=== PATIENT | female | born 1955 | race Caucasian/White ===

== ENCOUNTER 2016-11-15 17:51 | Emergency (ER) | payer BC ==
[~2016-11-15 17:51] MED LIST: CREO6000 OR; HYDR-3580 PO; LEVO75TA42 PO; OMEP40CA2 PO; ZOFR4TAB3 SL
[2016-11-15 17:55] VITALS: BP 141/105; PULSE 95; RESP 22; TEMP 98.3; O2SAT 100
[2016-11-15] MEDS ORDERED: SODIUM CHLOR 0.9% 1000 ML INJ 1,000 ML IV SCH ×2 (18:41→19:45)
[2016-11-15] MEDS ORDERED: METOCLOPRAMIDE HCL 10 MG/2 ML VIAL IV PUSH ONE (18:45)
[2016-11-15] MEDS ORDERED: diphenhydrAMINE HCL 50 MG/ML VIAL IV PUSH ONE (18:45)
[2016-11-15] MEDS ORDERED: SODIUM CHLORIDE 0.9% FLUSH 10 ML FLUSH IV FLUSH PRN (18:45)
[2016-11-15] MEDS ORDERED: MORPHINE SULFATE 8 MG/ML INJ IV PUSH ONE (18:45)
[2016-11-15] MEDS ORDERED: CREON6 PO (18:48)
[2016-11-15] MEDS ORDERED: LEVO100T5 PO (18:48)
[2016-11-15] MEDS ORDERED: PANT40TA3 PO ×2 (18:48→20:52)
--- NOTE | 2016-11-15 18:56 | PD ---
HPI . Nausea and vomiting Chief Complaint: Abdominal Pain Time Seen by Provider: 18:48 Travel History International Travel<30 days: No Contact w/Intl Traveler<30days: No Traveled to known affect area: No History of Present Illness HPI Patient presents with the acute onset of nausea and vomiting. It started somewhere around 10:00 this morning. She describes many episodes of emesis. She denies diarrhea. She denies fever. She complains of some upper abdominal pain. Pain is rated 9/10. Patient believes that her was triggered by a glazed doughnuts. Pain and vomiting have been unrelieved by Zofran. Patient reports a history of pancreatitis which she states is due to high fats. PFSH Past Medical History Blood Disorders: No Cancer: No Cardiovascular Problems: No Diminished Hearing: No Endocrine: No Gastrointestinal Disorders: Yes (GASTRITIS, INFLAMED ESOPHAGUS, GERD-LIKE S/S. pancreas problems) GERD: Yes Glaucoma: No Genitourinary: No Immune Disorder: No Musculoskeletal: No Neurologic: No Psychiatric: No Reproductive: No Respiratory: No Immunizations Current: Yes Thyroid Disease: Yes Tetanus Vaccination: < 5 Years Influenza Vaccination: Yes ?: Not Tubal Ligation: Yes Past Surgical History Abdominal Surgery: No Cardiac Surgery: No Cholecystectomy: Yes Ear Surgery: No Endocrine Surgery: No Eye Surgery: No Genitourinary Surgery: No Gynecologic Surgery: Yes (TUBAL) Oral Surgery: No Pacemaker: No Thoracic Surgery: No Other Surgery: Yes Social History Alcohol Use: No Tobacco Use: No Substance Use: No Allergies-Medications (Allergen,Severity, Reaction): Coded Allergies: Compazine (Verified Allergy, Severe, RASH/FLUSH SKIN, 11/15/16) Keflex (Verified Allergy, Severe, 11/15/16) Reported Meds & Prescriptions Reported Meds & Active Scripts Active Reported Creon (Amylase/Lipase/Protease) 6,000-19,000-30,000 Units Cap 1 Cap PO TIDPC Pantoprazole (Pantoprazole Sodium) 40 Mg Tab 40 Mg PO DAILY Levothyroxine (Levothyroxine Sodium) 100 Mcg Tab 100 Mcg PO DAILY Review of Systems Except as stated in HPI: all other systems reviewed are Neg General / Constitutional: No: Fever, Chills Gastrointestinal: Positive: Nausea, Vomiting, Abdominal Pain, No: Diarrhea Physical Exam Narrative GENERAL: Patient is lying on her left side with an emesis bag. SKIN: Warm and dry. HEAD: Atraumatic. Normocephalic. EYES: Pupils equal and round. Sclera are anicteric. ENT: No nasal bleeding or discharge. Mucous membranes pink and moist. NECK: Trachea midline. Neck is supple. CARDIOVASCULAR: Regular rate and rhythm. Heart sounds are normal. RESPIRATORY: No accessory muscle use. Lungs are clear with full air movement throughout. GASTROINTESTINAL: Abdomen soft. Nondistended. Bowel sounds positive. Epigastric tenderness with no guarding or rebound. MUSCULOSKELETAL: No obvious deformities. No edema. NEUROLOGICAL: Awake and alert. No obvious cranial nerve deficits. Motor grossly within normal limits. Normal speech. PSYCHIATRIC: Appropriate mood and affect; insight and judgment normal. Data Data Last Documented VS Vital Signs Date Time Temp Pulse Resp B/P Pulse Ox O2 Delivery O2 Flow Rate FiO2 11/15/16 17:55 98.3 95 22 141/105 100 Orders Complete Blood Count With Diff (11/15/16 18:41) Comprehensive Metabolic Panel (11/15/16 18:41) Lipase (11/15/16 18:41) Ct Abd/Pel W Iv Contrast(Rout) (11/15/16 18:41) Iv Access Insert/Monitor (11/15/16 18:41) Sodium Chlor 0.9% 1000 Ml Inj (Ns 1000 M (11/15/16 18:41) Sodium Chloride 0.9% Flush (Ns Flush) (11/15/16 18:45) Morphine Inj (Morphine Inj) (11/15/16 18:45) Diphenhydramine Inj (Benadryl Inj) (11/15/16 18:45) Metoclopramide Inj (Reglan Inj) (11/15/16 18:45) MDM Medical Decision Making Medical Screen Exam Complete: Yes Emergency Medical Condition: Yes Medical Record Reviewed: Yes (the patient has been seen here several times in the past and diagnosed with gastritis. I do not see any previous diagnoses of pancreatitis nor do I see any previous elevated lipase or amylase.) Differential Diagnosis Differential diagnosis includes but is not limited to viral gastritis, food poisoning, pancreatitis, pneumonia, hepatitis, acute coronary syndrome, Narrative Course Patient presents complaining with nausea, vomiting and upper abdominal pain. The patient reports previous history of pancreatitis and states that his symptoms are similar. Her care is being turned over to Dr. Maki at 7 PM. Diagnosis Primary Impression: Epigastric pain Additional Impression: Vomiting Qualified Code: R11.2 - Nausea and vomiting, intractability of vomiting not specified, unspecified vomiting type Condition: Stable Beatrice Pino MD Nov 15, 2016 18:56
[2016-11-15 19:10] VITALS: BP_SYST 155; BP_SYST 157; BP_DIAS 81; BP_DIAS 88; PULSE 82; PULSE 83; RESP 17; RESP 18; TEMP 98.9; O2SAT 93; O2SAT 96
[2016-11-15 19:12] LABS: AUTOMATED NEUTROPHIL # 12.5 TH/MM3 (1.8-7.7); BASOPHIL # 0.1 TH/MM3 (0-0.2); BASOPHIL % 0.8 % (0.0-2.0); EOSINOPHIL # 0.1 TH/MM3 (0-0.4); EOSINOPHIL % 0.5 % (0.0-4.0); HEMATOCRIT 41.7 % (35.0-46.0); HEMO FLAGS DIFF FINAL; LYMPH % 7.5 % (9.0-44.0); LYMPHOCYTE # 1.1 TH/MM3 (1.0-4.8); MEAN CELL VOLUME 84.9 FL (80.0-100.0); MEAN CORPUSCULAR HEMOGLOBIN 28.2 PG (27.0-34.0); MEAN CORPUSCULAR HGB CONC 33.2 % (32.0-36.0); MONO % 2.4 % (0.0-8.0); NEUT % 88.8 % (16.0-70.0); PLATELET COUNT 407 TH/MM3 (150-450); RED BLOOD COUNT 4.92 MIL/MM3 (4.00-5.30); RED CELL DISTRIBUTION WIDTH 12.9 % (11.6-17.2); WHITE BLOOD COUNT 14.1 TH/MM3 (4.0-11.0)
[2016-11-15 19:19] LABS: CHLORIDE 103 MEQ/L (98-107); POTASSIUM 3.5 MEQ/L (3.5-5.1); SODIUM (NA) 139 MEQ/L (136-145)
[2016-11-15 19:21] VITALS: RESP 17
[2016-11-15 19:23] LABS: ANION GAP 11 MEQ/L (5-15); BICARBONATE 25.2 MEQ/L (21.0-32.0); BLOOD UREA NITROGEN 13 MG/DL (7-18)
[2016-11-15 19:26] LABS: ALT (GPT) 23 U/L (10-53); AST (GOT) 17 U/L (15-37); GLOMERULAR FILTRATION RATE 63 ML/MIN (>89)
[2016-11-15 19:28] LABS: TOTAL BILIRUBIN ADULT 0.6 MG/DL (0.2-1.0)
[2016-11-15 19:29] LABS: ALKALINE PHOSPHATASE 106 U/L (45-117)
[2016-11-15] MEDS ORDERED: ONDANSETRON HCL 4 MG/2 ML VIAL IV ONE (19:45)
[2016-11-15] MEDS ORDERED: OMEP20TA PO (20:47)
[2016-11-15] MEDS ORDERED: ZOFR8TAB4 SL (20:47)
--- NOTE | 2016-11-15 20:48 | PD ---
Physical Exam Time Seen by Provider: 20:[address] gupta left this patient with me to check the results of the laboratory and CT and make a disposition. Data Data Last Documented VS Vital Signs Date Time Temp Pulse Resp B/P Pulse Ox O2 Delivery O2 Flow Rate FiO2 11/15/16 19:21 17 11/15/16 19:10 83 155/88 93 Room Air 11/15/16 19:10 98.9 Orders Complete Blood Count With Diff (11/15/16 18:41) Comprehensive Metabolic Panel (11/15/16 18:41) Lipase (11/15/16 18:41) Ct Abd/Pel W Iv Contrast(Rout) (11/15/16 18:41) Iv Access Insert/Monitor (11/15/16 18:41) Sodium Chlor 0.9% 1000 Ml Inj (Ns 1000 M (11/15/16 18:41) Sodium Chloride 0.9% Flush (Ns Flush) (11/15/16 18:45) Morphine Inj (Morphine Inj) (11/15/16 18:45) Diphenhydramine Inj (Benadryl Inj) (11/15/16 18:45) Metoclopramide Inj (Reglan Inj) (11/15/16 18:45) Ondansetron Inj (Zofran Inj) (11/15/16 19:45) Sodium Chlor 0.9% 1000 Ml Inj (Ns 1000 M (11/15/16 19:45) Labs Laboratory Tests Test 11/15/16 19:05 White Blood Count 14.1 TH/MM3 Red Blood Count 4.92 MIL/MM3 Hemoglobin 13.9 GM/DL Hematocrit 41.7 % Mean Corpuscular Volume 84.9 FL Mean Corpuscular Hemoglobin 28.2 PG Mean Corpuscular Hemoglobin 33.2 % Concent Red Cell Distribution Width 12.9 % Platelet Count 407 TH/MM3 Mean Platelet Volume 7.7 FL Neutrophils (%) (Auto) 88.8 % Lymphocytes (%) (Auto) 7.5 % Monocytes (%) (Auto) 2.4 % Eosinophils (%) (Auto) 0.5 % Basophils (%) (Auto) 0.8 % Neutrophils # (Auto) 12.5 TH/MM3 Lymphocytes # (Auto) 1.1 TH/MM3 Monocytes # (Auto) 0.3 TH/MM3 Eosinophils # (Auto) 0.1 TH/MM3 Basophils # (Auto) 0.1 TH/MM3 CBC Comment DIFF FINAL Differential Comment Sodium Level 139 MEQ/L Potassium Level 3.5 MEQ/L Chloride Level 103 MEQ/L Carbon Dioxide Level 25.2 MEQ/L Anion Gap 11 MEQ/L Blood Urea Nitrogen 13 MG/DL Creatinine 0.91 MG/DL Estimat Glomerular Filtration 63 ML/MIN Rate Random Glucose 136 MG/DL Calcium Level 9.9 MG/DL Total Bilirubin 0.6 MG/DL Aspartate Amino Transf 17 U/L (AST/SGOT) Alanine Aminotransferase 23 U/L (ALT/SGPT) Alkaline Phosphatase 106 U/L Total Protein 8.6 GM/DL Albumin 4.0 GM/DL Lipase 73 U/L MDM Medical Record Reviewed: Yes Supervised Visit with FIFI: Yes Interpretation(s) The CBC shows white count of 14,100 with 89% neutrophils. The complete metabolic profile shows a GFR of 63 but is otherwise normal. The lipase is normal. The patient refused a CT scan, she states her son is a radiologist and she does not want the radiation. Differential Diagnosis Gastritis, pancreatitis, gastroenteritis, dehydration, electrolyte disorder, ulcer pain Narrative Course The patient refused the CT, she states she has a son who is a radiologist and does not want the radiation. The patient likely has a gastritis. Plan: The patient will be given Zofran and Prilosec and follow-up with her primary care physician in [place]. Diagnosis Primary Impression: Gastritis Additional Impression: Epigastric pain Additional Instruction: As we discussed, take the Zofran regularly, 8 mg 3 times daily For the first few days. Hopefully, this will avoid the nausea and vomiting episodes. Follow- up with your primary care physician in [place]. Med/Other Pt SpecificInfo: Prescription(s) given Scripts Ondansetron Odt (Zofran Odt)8 Mg Tab8 Mg SL Q8H PRN (NAUSEA OR VOMITING) #30 TAB Ref 0 Prov:Dallas Maki MD 11/15/16 Omeprazole 20 Mg Tab20 Mg PO DAILY #30 TAB Ref 0 Prov:Dallas Maki MD 11/15/16 Disposition: 01 DISCHARGE HOME Condition: Stable Dallas Maki MD Nov 15, 2016 20:48
[2016-11-15 21:02] VITALS: BP 138/78
[2016-11-16] MEDS ORDERED: REGL5TAB PO (13:25)
== END 2016-11-15 21:34 | disposition home or self-care (01) ==
LOC: PHED 17:51
DX: K29.70 Gastritis, unspecified, without bleeding (principal); E07.9 Disorder of thyroid, unspecified
CPT/HCPCS: 80053; 83690; 85025; 96361; 96374; 96375; 99284; J1200; J2270; J2765; J7030

== ENCOUNTER 2016-11-16 09:33 | Emergency (ER) | payer BC ==
[~2016-11-16] VITALS: Ht 162.6 cm; Wt 85.0 kg
[~2016-11-16 09:33] MED LIST changes: -CREO6000 OR; +CREON6 PO; -HYDR-3580 PO; +LEVO100T5 PO; -LEVO75TA42 PO; -OMEP40CA2 PO; +PANT40TA3 PO; -ZOFR4TAB3 SL; +ZOFR8TAB4 SL
[2016-11-16 09:38] VITALS: BP 154/101; PULSE 83; RESP 16; TEMP 98.2; O2SAT 100
--- NOTE | 2016-11-16 10:08 | PD ---
HPI Chief Complaint: GI Complaint Time Seen by Provider: 10:08 Travel History International Travel<30 days: No Contact w/Intl Traveler<30days: No Traveled to known affect area: No History of Present Illness HPI 61-year-old female came to the emergency room with history of epigastric pain, nausea and vomiting which is intractable. Patient says she was here at 7 PM last night for the exact same thing. This started yesterday. She has history of pancreatitis and she thinks this is what it is. She was seen in the emergency room and was given IV pain medication and IV fluid. However her symptoms after she went home started again. She says she's been vomiting every hour since she went home. She seemed uncomfortable here. I looked at her record from last night and she had some leukocytosis but lipase was within normal limits. PFSH Past Medical History Narrative Medical List of her past medical, surgical, social and family history was reviewed from the nursing note. Blood Disorders: No Cancer: No Cardiovascular Problems: No Diminished Hearing: No Endocrine: No Gastrointestinal Disorders: Yes (GASTRITIS, INFLAMED ESOPHAGUS, GERD-LIKE S/S. pancreas problems) GERD: Yes Glaucoma: No Genitourinary: No Immune Disorder: No Musculoskeletal: No Neurologic: No Psychiatric: No Reproductive: No Respiratory: No Immunizations Current: Yes Thyroid Disease: Yes ?: Not LMP: MENOPAUSAL Tubal Ligation: Yes Past Surgical History Abdominal Surgery: No Cardiac Surgery: No Cholecystectomy: Yes Ear Surgery: No Endocrine Surgery: No Eye Surgery: No Genitourinary Surgery: No Gynecologic Surgery: Yes (TUBAL) Oral Surgery: No Pacemaker: No Thoracic Surgery: No Other Surgery: Yes Social History Alcohol Use: No Tobacco Use: No Substance Use: No Allergies-Medications (Allergen,Severity, Reaction): Coded Allergies: Compazine (Verified Allergy, Severe, RASH/FLUSH SKIN, 11/16/16) Keflex (Verified Allergy, Severe, 11/16/16) Comments List of her allergies reviewed from the nursing note. Reported Meds & Prescriptions Reported Meds & Active Scripts Active Reglan (Metoclopramide HCl) 5 Mg Tab 5 Mg PO QID PRN Zofran Odt (Ondansetron Odt) 8 Mg Tab 8 Mg SL Q8H PRN Reported Creon (Amylase/Lipase/Protease) 6,000-19,000-30,000 Units Cap 1 Cap PO TIDPC Pantoprazole (Pantoprazole Sodium) 40 Mg Tab 40 Mg PO DAILY Levothyroxine (Levothyroxine Sodium) 100 Mcg Tab 100 Mcg PO DAILY Narrative Medication List of her home medications reviewed from the nursing note. Review of Systems Except as stated in HPI: all other systems reviewed are Neg Physical Exam Narrative GENERAL: Awake, alert, moderate distress SKIN: Focused skin assessment warm/dry. HEAD: Atraumatic. Normocephalic. EYES: Pupils equal and round. No scleral icterus. No injection or drainage. ENT: No nasal bleeding or discharge. Mucous membranes pink and moist. NECK: Trachea midline. No JVD. CARDIOVASCULAR: Regular rate and rhythm. No murmur appreciated. RESPIRATORY: No accessory muscle use. Clear to auscultation. Breath sounds equal bilaterally. GASTROINTESTINAL: Abdomen soft, non-tender, nondistended. Hepatic and splenic margins not palpable. MUSCULOSKELETAL: No obvious deformities. No clubbing. No cyanosis. No edema. NEUROLOGICAL: Awake and alert. No obvious cranial nerve deficits. Motor grossly within normal limits. Normal speech. PSYCHIATRIC: Appropriate mood and affect; insight and judgment normal. Data Data Last Documented VS Vital Signs Date Time Temp Pulse Resp B/P Pulse Ox O2 Delivery O2 Flow Rate FiO2 11/16/16 13:25 78 145/62 95 11/16/16 10:02 16 11/16/16 09:38 98.2 Orders Complete Blood Count With Diff (11/16/16 10:41) Comprehensive Metabolic Panel (11/16/16 10:41) Lipase (11/16/16 10:41) Iv Access Insert/Monitor (11/16/16 10:41) Ecg Monitoring (11/16/16 10:41) Oximetry (11/16/16 10:41) Pantoprazole Inj (Protonix Inj) (11/16/16 10:45) Sodium Chlor 0.9% 1000 Ml Inj (Ns 1000 M (11/16/16 10:41) Sodium Chloride 0.9% Flush (Ns Flush) (11/16/16 10:45) Morphine Inj (Morphine Inj) (11/16/16 10:45) Metoclopramide Inj (Reglan Inj) (11/16/16 10:45) Ct Abd/Pel W/O Iv Contrast (6/29/17 ) Potassium Chlor 10 Meq Premix (Kcl 10 Me (11/16/16 12:15) Labs Laboratory Tests Test 11/16/16 11:09 White Blood Count 14.7 TH/MM3 Red Blood Count 4.79 MIL/MM3 Hemoglobin 13.8 GM/DL Hematocrit 41.0 % Mean Corpuscular Volume 85.7 FL Mean Corpuscular Hemoglobin 28.7 PG Mean Corpuscular Hemoglobin 33.5 % Concent Red Cell Distribution Width 13.4 % Platelet Count 402 TH/MM3 Mean Platelet Volume 8.3 FL Neutrophils (%) (Auto) 84.5 % Lymphocytes (%) (Auto) 8.7 % Monocytes (%) (Auto) 5.5 % Eosinophils (%) (Auto) 0.1 % Basophils (%) (Auto) 1.2 % Neutrophils # (Auto) 12.4 TH/MM3 Lymphocytes # (Auto) 1.3 TH/MM3 Monocytes # (Auto) 0.8 TH/MM3 Eosinophils # (Auto) 0.0 TH/MM3 Basophils # (Auto) 0.2 TH/MM3 CBC Comment DIFF FINAL Differential Comment Sodium Level 140 MEQ/L Potassium Level 3.4 MEQ/L Chloride Level 103 MEQ/L Carbon Dioxide Level 25.6 MEQ/L Anion Gap 11 MEQ/L Blood Urea Nitrogen 12 MG/DL Creatinine 0.75 MG/DL Estimat Glomerular Filtration 79 ML/MIN Rate Random Glucose 117 MG/DL Calcium Level 9.7 MG/DL Total Bilirubin 0.7 MG/DL Aspartate Amino Transf 15 U/L (AST/SGOT) Alanine Aminotransferase 21 U/L (ALT/SGPT) Alkaline Phosphatase 99 U/L Total Protein 8.0 GM/DL Albumin 3.8 GM/DL Lipase 63 U/L [facility] Medical Decision Making Medical Screen Exam Complete: Yes Emergency Medical Condition: Yes Medical Record Reviewed: Yes Differential Diagnosis Acute gastroenteritis, acute pancreatitis, acute gastritis, gastroparesis Narrative Course 11:33 AM patient was medicated with pain meds, IV Protonix and IV fluid bolus. I gave her IV Reglan as well. Awaiting for the blood work to return. Patient never had a CT scan of her abdomen and pelvis have given her leukocytosis last night have ordered a CT scan as well. 12:02 PM blood test results are back. Patient continues to have some leukocytosis with left shift. Lipase once again is within normal range. Her potassium is slightly low and I'm giving her IV potassium. Her retching and vomiting seems to have stopped for now. Awaiting for the CAT scan to be done and resulted. 1:[address] scan does not show any acute issues. I will discharge her home. Procedures EKG Prior to Arrival: No Diagnosis Primary Impression: Acute gastritis Qualified Code: K29.00 - Acute gastritis without hemorrhage, unspecified gastritis type Referrals: Primary Care Physician 3 days Additional Instructions: Please return to the ER if the condition worsens or any other new concerns. Otherwise follow-up with your primary care in couple days. Take the medication as per the prescription direction. Avoid acidic fluid like lemon, lying, strawberries, tomatoes etc. Med/Other Pt SpecificInfo: Prescription(s) given Scripts Metoclopramide (Reglan)5 Mg Tab5 Mg PO QID PRN (vomiting) #20 TAB Ref 0 Prov:Lucho Coffey MD 11/16/16 Disposition: 01 DISCHARGE HOME Condition: Stable Lucho Coffey MD Nov 16, 2016 10:08
[2016-11-16] MEDS ORDERED: SODIUM CHLOR 0.9% 1000 ML INJ 1,000 ML IV SCH (10:41)
[2016-11-16] MEDS ORDERED: SODIUM CHLORIDE 0.9% FLUSH 10 ML FLUSH IV FLUSH PRN (10:45)
[2016-11-16] MEDS ORDERED: METOCLOPRAMIDE HCL 10 MG/2 ML VIAL IV PUSH ONE (10:45)
[2016-11-16] MEDS ORDERED: PANTOPRAZOLE SODIUM 40 MG VIAL IVP ONE (10:45)
[2016-11-16] MEDS ORDERED: MORPHINE SULFATE 8 MG/ML INJ IV PUSH ONE (10:45)
[2016-11-16 11:23] VITALS: O2SAT 96
[2016-11-16 11:32] LABS: AUTOMATED NEUTROPHIL # 12.4 TH/MM3 (1.8-7.7); BASOPHIL # 0.2 TH/MM3 (0-0.2); BASOPHIL % 1.2 % (0.0-2.0); EOSINOPHIL % 0.1 % (0.0-4.0); LYMPH % 8.7 % (9.0-44.0); LYMPHOCYTE # 1.3 TH/MM3 (1.0-4.8); MEAN CELL VOLUME 85.7 FL (80.0-100.0); MEAN CORPUSCULAR HEMOGLOBIN 28.7 PG (27.0-34.0); MEAN CORPUSCULAR HGB CONC 33.5 % (32.0-36.0); MONO % 5.5 % (0.0-8.0); NEUT % 84.5 % (16.0-70.0); PLATELET COUNT 402 TH/MM3 (150-450); RED BLOOD COUNT 4.79 MIL/MM3 (4.00-5.30); RED CELL DISTRIBUTION WIDTH 13.4 % (11.6-17.2); WHITE BLOOD COUNT 14.7 TH/MM3 (4.0-11.0)
[2016-11-16 11:33] LABS: HEMO FLAGS DIFF FINAL
[2016-11-16 11:38] LABS: CHLORIDE 103 MEQ/L (98-107); POTASSIUM 3.4 MEQ/L (3.5-5.1); SODIUM (NA) 140 MEQ/L (136-145)
[2016-11-16 11:43] LABS: ANION GAP 11 MEQ/L (5-15); BICARBONATE 25.6 MEQ/L (21.0-32.0); BLOOD UREA NITROGEN 12 MG/DL (7-18)
[2016-11-16 11:46] LABS: ALT (GPT) 21 U/L (10-53); AST (GOT) 15 U/L (15-37); GLOMERULAR FILTRATION RATE 79 ML/MIN (>89)
[2016-11-16 11:47] LABS: TOTAL BILIRUBIN ADULT 0.7 MG/DL (0.2-1.0)
[2016-11-16 11:49] LABS: ALKALINE PHOSPHATASE 99 U/L (45-117)
[2016-11-16] MEDS ORDERED: POTASSIUM CHLOR 10 MEQ PREMIX 100 ML IV ONE (12:15)
[2016-11-16 12:30] VITALS: BP 148/80; PULSE 80; O2SAT 97
--- NOTE | 2016-11-16 13:04 | RADRPT ---
EXAM DATE/TIME: 11/16/2016 12:02 [facility] COMPARISON: No previous studies available for comparison. INDICATIONS : Epigastric pain. Nausea. Vomiting. ORAL CONTRAST: Patient refused oral contrast. RADIATION DOSE: 19.76 CTDIvol (mGy) MEDICAL HISTORY : Gastroesophageal reflux disease. Pancreatitis. Gastritis. SURGICAL HISTORY : Cholecystectomy. Tubal ligation. ENCOUNTER: Initial ACUITY: 2 days PAIN SCALE: 9/10 LOCATION: Bilateral upper quadrant TECHNIQUE: Volumetric scanning of the abdomen and pelvis was performed. Using automated exposure control and ad justment of the mA and/or kV according to patient size, radiation dose was kept as low as reasonably achievable to obtain optimal diagnostic quality images. DICOM format image data is available electro nically for review and comparison. FINDINGS: LOWER LUNGS: The visualized lower lungs are clear. A moderate-sized hiatal hernia is noted. LIVER: Homogeneous density without lesion. There is no dilation of the biliary tree. No calcified gallston es. Status post cholecystectomy. SPLEEN: Normal size without lesion. PANCREAS: Within normal limits. KIDNEYS: Normal in size and shape. There is no mass, stone, or hydronephrosis. ADRENAL GLANDS: Within normal limits. VASCULAR: There is no aortic aneurysm. BOWEL/MESENTERY: Uncomplicated colonic diverticulosis is noted. No acute diverticulitis is noted. ABDOMINAL WALL: Within normal limits. RETROPERITONEUM: There is no lymphadenopathy. BLADDER: No wall thickening or mass. REPRODUCTIVE: Within normal limits. INGUINAL: There is no lymphadenopathy or hernia. MUSCULOSKELETAL: Degenerative changes and scoliosis of the thoraco-lumbar spine are noted. CONCLUSION: 1. Uncomplicated colonic diverticulosis. 2. Moderate-sized hiatal hernia. 3. Degenerative changes and scoliosis of the thoracolumbar spine. Kush Paul MD on November 16, 2016 at 12:58 Board Certified Radiologist. This report was verified electronically.
[2016-11-16 13:25] VITALS: BP 145/62; PULSE 78; O2SAT 95
[2016-11-16] MEDS ORDERED: REGL5TAB PO (13:25)
== END 2016-11-16 13:38 | disposition home or self-care (01) ==
LOC: PHED 09:33
DX: K29.00 Acute gastritis without bleeding (principal); Z90.49 Acquired absence of other specified parts of digestive tract
CPT/HCPCS: 74176; 80053; 83690; 85025; 96361; 96365; 96375; 99285; C9113; J2270; J2765; J3480; J7030

== ENCOUNTER 2017-01-08 13:12 | Emergency (ER) | payer BC ==
[~2017-01-08] VITALS: Ht 162.6 cm; Wt 84.0 kg
[~2017-01-08 13:12] MED LIST changes: +REGL5TAB PO
[2017-01-08 13:21] VITALS: BP 156/79; PULSE 84; RESP 16; TEMP 98.1; O2SAT 99
[2017-01-08] MEDS ORDERED: SODIUM CHLOR 0.9% 1000 ML INJ 1,000 ML IV SCH (13:38)
--- NOTE | 2017-01-08 13:43 | PD ---
HPI Chief Complaint: GI Complaint Time Seen by Provider: 13:35 Travel History International Travel<30 days: No Contact w/Intl Traveler<30days: No Traveled to known affect area: No History of Present Illness HPI 61-year-old female with history of migraine headaches, pancreatitis, here for evaluation of epigastric abdominal pain, headache, nausea, vomiting. Symptoms started this morning with a right-sided headache that is typical for her migraines. Patient became nauseous and began vomiting. She has epigastric abdominal discomfort described as an ache/burning and feels similar to previous episodes of pancreatitis. History of cholecystectomy. No other abdominal surgeries. Last bowel movement was 3 days ago. PFSH Past Medical History Blood Disorders: No Cancer: No Cardiovascular Problems: No Diminished Hearing: No Endocrine: No Gastrointestinal Disorders: Yes (GASTRITIS, INFLAMED ESOPHAGUS, GERD-LIKE S/S. pancreas problems) GERD: Yes Glaucoma: No Genitourinary: No Immune Disorder: No Musculoskeletal: No Neurologic: No Psychiatric: No Reproductive: No Respiratory: No Immunizations Current: Yes Migraines: Yes Pancreatitis: Yes Thyroid Disease: Yes Tetanus Vaccination: < 5 Years Influenza Vaccination: Yes ?: Not Menopausal: Yes Tubal Ligation: Yes Past Surgical History Abdominal Surgery: No Cardiac Surgery: No Cholecystectomy: Yes Ear Surgery: No Endocrine Surgery: No Eye Surgery: No Genitourinary Surgery: No Gynecologic Surgery: Yes (TUBAL) Oral Surgery: No Pacemaker: No Thoracic Surgery: No Other Surgery: Yes Social History Alcohol Use: No Tobacco Use: No Substance Use: No Allergies-Medications (Allergen,Severity, Reaction): Coded Allergies: cephalexin (Unverified Allergy, Severe, 01/08/17) prochlorperazine (Unverified Allergy, Severe, RASH/FLUSH SKIN, 01/08/17) Reported Meds & Prescriptions Reported Meds & Active Scripts Active Reglan (Metoclopramide HCl) 5 Mg Tab 5 Mg PO QID PRN Zofran Odt (Ondansetron Odt) 8 Mg Tab 8 Mg SL Q8H PRN Reported Creon (Amylase/Lipase/Protease) 6,000-19,000-30,000 Units Cap 1 Cap PO TIDPC Pantoprazole (Pantoprazole Sodium) 40 Mg Tab 40 Mg PO DAILY Levothyroxine (Levothyroxine Sodium) 100 Mcg Tab 100 Mcg PO DAILY Review of Systems Except as stated in HPI: all other systems reviewed are Neg Physical Exam Narrative GENERAL: Well-developed, well-nourished, vomiting into an emesis bag SKIN: Focused skin assessment warm/dry. HEAD: Atraumatic. Normocephalic. EYES: Pupils equal and round. No scleral icterus. No injection or drainage. ENT: Mucous membranes pink and moist. NECK: Trachea midline. No JVD. CARDIOVASCULAR: Regular rate and rhythm. No murmur appreciated. RESPIRATORY: No accessory muscle use. Clear to auscultation. Breath sounds equal bilaterally. GASTROINTESTINAL: Abdomen soft, nondistended. Moderate epigastric tenderness without peritoneal signs. Rest of abdomen is soft and nontender. Normal bowel sounds. MUSCULOSKELETAL: No obvious deformities. No clubbing. No cyanosis. No edema. NEUROLOGICAL: Awake and alert. No obvious cranial nerve deficits. Motor grossly within normal limits. Normal speech. PSYCHIATRIC: Appropriate mood and affect; insight and judgment normal. Data Data Last Documented VS Vital Signs Date Time Temp Pulse Resp B/P (MAP) Pulse Ox O2 Delivery O2 Flow Rate FiO2 01/08/17 15:20 92 14 155/82 (106) 96 Room Air 01/08/17 13:21 98.1 Orders Orders Complete Blood Count With Diff (01/08/17 13:38) Prothrombin Time / Inr (Pt) (01/08/17 13:38) Act Partial Throm Time (Ptt) (01/08/17 13:38) Urinalysis - C+S If Indicated (01/08/17 13:38) Abdomen, Flat & Upright (01/08/17 ) Iv Access Insert/Monitor (01/08/17 13:38) Ecg Monitoring (01/08/17 13:38) Oximetry (01/08/17 13:38) Morphine Inj (Morphine Inj) (01/08/17 13:45) Sodium Chlor 0.9% 1000 Ml Inj (Ns 1000 M (01/08/17 13:38) Sodium Chloride 0.9% Flush (Ns Flush) (01/08/17 13:45) Electrocardiogram (01/08/17 13:38) Metoclopramide Inj (Reglan Inj) (01/08/17 13:45) Ckmb (Isoenzyme) Profile (01/08/17 13:40) Troponin I (01/08/17 13:40) Comprehensive Metabolic Panel (01/08/17 14:00) Lipase (01/08/17 14:00) Ondansetron Inj (Zofran Inj) (01/08/17 15:30) Al-Mag Hy-Si 40-40-4 Mg/Ml Liq (Mag-Al P (01/08/17 15:45) Lidocaine 2% Viscous (Xylocaine 2% Visco (01/08/17 15:45) Labs Laboratory Tests Test 01/08/17 13:45 01/08/17 14:00 Urine Collection Type VOIDED Urine Color YELLOW Urine Turbidity CLEAR Urine pH 6.5 Urine Specific Brady 1.025 Urine Protein TRACE mg/dL Urine Glucose (UA) NEG mg/dL Urine Ketones 80 OR GREATER mg/dL Urine Occult Blood NEG Urine Nitrite NEG Urine Bilirubin NEG Urine Leukocyte Esterase NEG Urine WBC 0-2 /hpf Urine Squamous Epithelial Cells 0-2 /hpf Urine Mucus FEW /lpf Microscopic Urinalysis Comment CULT NOT INDICATED White Blood Count 13.3 TH/MM3 Red Blood Count 4.73 MIL/MM3 Hemoglobin 13.3 GM/DL Hematocrit 39.9 % Mean Corpuscular Volume 84.4 FL Mean Corpuscular Hemoglobin 28.1 PG Mean Corpuscular Hemoglobin Concent 33.3 % Red Cell Distribution Width 12.4 % Platelet Count 379 TH/MM3 Mean Platelet Volume 8.1 FL Neutrophils (%) (Auto) 90.9 % Lymphocytes (%) (Auto) 5.9 % Monocytes (%) (Auto) 2.7 % Eosinophils (%) (Auto) 0.0 % Basophils (%) (Auto) 0.5 % Neutrophils # (Auto) 12.0 TH/MM3 Lymphocytes # (Auto) 0.8 TH/MM3 Monocytes # (Auto) 0.4 TH/MM3 Eosinophils # (Auto) 0.0 TH/MM3 Basophils # (Auto) 0.1 TH/MM3 CBC Comment DIFF FINAL Differential Comment Prothrombin Time 10.0 SEC Prothromb Time International Ratio 0.9 RATIO Activated Partial Thromboplast Time 27.1 SEC Blood Urea Nitrogen 16 MG/DL Creatinine 0.91 MG/DL Random Glucose 139 MG/DL Total Protein 8.0 GM/DL Albumin 3.7 GM/DL Calcium Level 9.3 MG/DL Alkaline Phosphatase 99 U/L Aspartate Amino Transf (AST/SGOT) 16 U/L Alanine Aminotransferase (ALT/SGPT) 23 U/L Total Bilirubin 0.6 MG/DL Sodium Level 135 MEQ/L Potassium Level 3.4 MEQ/L Chloride Level 102 MEQ/L Carbon Dioxide Level 23.2 MEQ/L Anion Gap 10 MEQ/L Estimat Glomerular Filtration Rate 63 ML/MIN Total Creatine Kinase 87 U/L Troponin I LESS THAN 0.02 NG/ML Lipase 75 U/L MDM Medical Decision Making Medical Screen Exam Complete: Yes Emergency Medical Condition: Yes Medical Record Reviewed: Yes Interpretation(s) EKG: Sinus, rate 77, normal axis, normal intervals, no acute ischemic abnormality. Differential Diagnosis Migraine, gastritis, pancreatitis, bowel obstruction, ACS Narrative Course Vital signs show heart rate 84, blood pressure 156/79, pulse ox 99% on room air , oral temp of 98.1F. CBC shows WBC 13.3, hemoglobin 13.3, hematocrit 39.9, platelets 379, neutrophils 90.9%. CMP is essentially unremarkable. Lipase is 75. Cardiac enzymes are negative. UA shows 80 years greater ketones, few mucus. Abdominal x-ray flat and upright: Nonspecific paucity of small bowel gas, otherwise no evidence for bowel obstruction. 1515: Patient was made aware of all findings. She is resting comfortably. States that her head pain pain and abdominal pain have resolved, however she still feels nauseous. At this point she was given morphine and Reglan. She will be given a dose of Zofran and reassessed. Patient was given a dose of Zofran IV as well as a GI cocktail. On reassessment she is sleeping comfortably. She is tolerating clear liquids orally. I do not believe her symptoms are cardiac related. Patient was made aware of all findings once again. I believe she is stable for discharge home. She has Zofran and Reglan at home. Patient informed on when to return to the emergency department. She verbalizes understanding and agreement with plan. Diagnosis Primary Impression: Nausea and vomiting Qualified Codes: R11.2 - Nausea with vomiting, unspecified Additional Impression: Migraine Qualified Codes: G43.909 - Migraine, unspecified, not intractable, without status migrainosus Referrals: Primary Care Physician 1 week Additional Instructions: Follow-up with your primary care physician this week. Return to the emergency department for worsening symptoms or any other concerns. Disposition: DISCHARGE HOME Condition: Stable Kash García MD Jan 08, 2017 13:43
[2017-01-08] MEDS ORDERED: MORPHINE SULFATE 4 MG/ML INJ IV PUSH ONE (13:45)
[2017-01-08] MEDS ORDERED: METOCLOPRAMIDE HCL 10 MG/2 ML VIAL IV PUSH ONE (13:45)
[2017-01-08] MEDS ORDERED: SODIUM CHLORIDE 0.9% FLUSH 10 ML FLUSH IV FLUSH PRN (13:45)
[2017-01-08 14:11] LABS: BASOPHIL # 0.1 TH/MM3 (0-0.2); BASOPHIL % 0.5 % (0.0-2.0); HEMATOCRIT 39.9 % (35.0-46.0); LYMPH % 5.9 % (9.0-44.0); LYMPHOCYTE # 0.8 TH/MM3 (1.0-4.8); MEAN CELL VOLUME 84.4 FL (80.0-100.0); MEAN CORPUSCULAR HEMOGLOBIN 28.1 PG (27.0-34.0); MEAN CORPUSCULAR HGB CONC 33.3 % (32.0-36.0); MONO % 2.7 % (0.0-8.0); NEUT % 90.9 % (16.0-70.0); PLATELET COUNT 379 TH/MM3 (150-450); RED BLOOD COUNT 4.73 MIL/MM3 (4.00-5.30); RED CELL DISTRIBUTION WIDTH 12.4 % (11.6-17.2); WHITE BLOOD COUNT 13.3 TH/MM3 (4.0-11.0)
[2017-01-08 14:13] LABS: HEMO FLAGS DIFF FINAL
[2017-01-08 14:13] LABS: BLOOD, URINE NEG (NEG); GLUCOSE,URINE NEG (NEG); KETONE, URINE 80 OR GREATER mg/dL (NEG); NITRITE,URINE NEG (NEG); PH, URINE 6.5 (5.0-8.5)
--- NOTE | 2017-01-08 14:14 | RADRPT ---
EXAM DATE/TIME: 01/08/2017 13:43 [facility] COMPARISON: No previous studies available for comparison. INDICATIONS : Nausea and vomiting MEDICAL HISTORY : None. SURGICAL HISTORY : Cholecystectomy. ENCOUNTER: Initial ACUITY: 1 day PAIN SCORE: 10/10 LOCATION: Abdomen FINDINGS: There is stool seen throughout the colon. There is a paucity of bowel gas. No dilated loops of bowel or air-fluid levels are noted. There is no pneumatosis or free air. Surgical clips in the right upper quadrant consistent with prior cholecystectomy. Degenerative changes of the lumbar spine secondary t o mild levoscoliosis of the lumbar spine. CONCLUSION: Nonspecific paucity of small bowel gas. Otherwise, no evidence for bowel obstruction. Mil De La Cruz MD on January 08, 2017 at 14:09 Board Certified Radiologist. This report was verified electronically.
[2017-01-08 14:19] LABS: CHLORIDE 102 MEQ/L (98-107); POTASSIUM 3.4 MEQ/L (3.5-5.1); SODIUM (NA) 135 MEQ/L (136-145)
[2017-01-08 14:21] LABS: ANION GAP 10 MEQ/L (5-15); BICARBONATE 23.2 MEQ/L (21.0-32.0); BLOOD UREA NITROGEN 16 MG/DL (7-18)
[2017-01-08 14:23] LABS: APTT (PATIENT) 27.1 SEC (24.3-30.1); INTERNATIONAL NORMALIZED RATIO 0.9 RATIO
[2017-01-08 14:25] LABS: ALT (GPT) 23 U/L (10-53); AST (GOT) 16 U/L (15-37); GLOMERULAR FILTRATION RATE 63 ML/MIN (>89)
[2017-01-08 14:27] LABS: TOTAL BILIRUBIN ADULT 0.6 MG/DL (0.2-1.0)
[2017-01-08 14:28] LABS: ALKALINE PHOSPHATASE 99 U/L (45-117)
[2017-01-08 14:48] LABS: CREATINE KINASE 87 U/L (26-192)
[2017-01-08 14:48] LABS: METHOD OF COLLECTION VOIDED; MUCUS URINE FEW /lpf (OCC); URINE COLOR YELLOW (YELLW/STRAW)
[2017-01-08 14:49] LABS: COMMENT (UR) CULT NOT INDICATED; CULTURE IF INDICATED CULT NOT INDICATED; SQUAMOUS EPITHELIAL CELL URINE 0-2 /hpf (0-5); WBC, URINE 0-2 /hpf (0-5)
[2017-01-08 15:00] VITALS: O2SAT 93
[2017-01-08 15:20] VITALS: BP 155/82; PULSE 92; RESP 14; O2SAT 96
[2017-01-08] MEDS ORDERED: ONDANSETRON HCL 4 MG/2 ML VIAL IV PUSH ONE (15:30)
[2017-01-08] MEDS ORDERED: LIDOCAINE VISCOUS 2% SOLN 15 ML UDC PO ONE (15:45)
[2017-01-08] MEDS ORDERED: ALUMINUM/MAGNESIUM/SIMETH 30 ML CUP PO ONE (15:45)
[2017-01-08 16:35] VITALS: BP 146/78; PULSE 86; RESP 16; O2SAT 98
--- NOTE | 2017-01-09 13:39 | EKG ---
Date Performed: 01/08/2017 Time Performed: 13:56:38 PTAGE: 61 years EKG: Sinus rhythm NORMAL ECG Compared to prior tracing no significant change PREVIOUS TRACING : 05/19/2013 19.10 DOCTOR: Eve Velazco Interpretating Date/Time 01/09/2017 13:37:40
== END 2017-01-08 16:40 | disposition home or self-care (01) ==
LOC: PHED 13:12
DX: G43.909 Migraine, unspecified, not intractable, without status migrainosus (principal)
CPT/HCPCS: 74020; 80053; 81001; 82550; 83690; 84484; 85025; 85610; 85730; 93005; 96361; 96374; 96375; 99285; J2270; J2405; J2765; J7030